=== PATIENT | female | born 1980 | race Caucasian/White ===

== ENCOUNTER 2018-02-27 13:49 | Emergency (ER) | payer SELFPAY ==
[~2018-02-27] VITALS: Ht 167.6 cm; Wt 81.8 kg
[~2018-02-27 13:49] MED LIST: ALDOMET PO; AMLOPIDINE; DHA; FLEXERIL 1010 MG/TAB PO; LORTAB 5/500 501 TAB PO; MEDROL 4MG DOSPA4 MG PO; MOTRIN 600600 MG/TAB PO; NO HOME MEDICATIONS; NORCO 325 MG-51 TAB PO; NORCO 325 MG-7.1 TAB PO; PERCOCET 325 MG1 TA2 PO; PRENATAL VITAMI1 TA5 PO; PRENATAL1 TA1 PO; PROZAC 20MG20 MG PO; TOPROL; ZYRTEC 10MG10 MG PO; ZYRTEC5 MG PO
[2018-02-27 13:58] VITALS: BP 198/108; TEMP 98.4
[2018-02-27] MEDS ORDERED: CELEXA 20MG20 MG/TAB PO (14:40)
[2018-02-27] MEDS ORDERED: NORCO 325 MG-51 TAB PO (15:22)
[2018-02-27 15:33] VITALS: PULSE 70
== END 2018-02-27 15:32 | disposition home or self-care (01) ==
LOC: COL.ER 13:49
DX: S39.012A Strain of muscle, fascia and tendon of lower back, initial encounter (principal); S80.12XA Contusion of left lower leg, initial encounter; F32.9 Major depressive disorder, single episode, unspecified; W22.8XXA Striking against or struck by other objects, initial encounter; W18.39XA Other fall on same level, initial encounter

== ENCOUNTER 2018-05-05 18:46 | Emergency (ER) | payer SELFPAY ==
[~2018-05-05] VITALS: Ht 165.1 cm; Wt 81.8 kg
[~2018-05-05 18:46] MED LIST changes: +CELEXA 20MG20 MG/TAB PO
[2018-05-05 18:51] VITALS: BP 184/114; TEMP 98.8
[2018-05-05] MEDS ORDERED: MOBIC 7.5MG7.5 MG PO (19:50)
[2018-05-05] MEDS ORDERED: FLEXERIL5 MG PO (19:50)
[2018-05-05 20:00] VITALS: PULSE 59
== END 2018-05-05 20:00 | disposition home or self-care (01) ==
LOC: COL.ER 18:46
DX: M62.830 Muscle spasm of back (principal); M54.2 Cervicalgia; G89.29 Other chronic pain; E03.9 Hypothyroidism, unspecified; F32.9 Major depressive disorder, single episode, unspecified; F41.9 Anxiety disorder, unspecified; F17.210 Nicotine dependence, cigarettes, uncomplicated

== ENCOUNTER 2019-04-10 12:43 | Observation (INO) | payer BC ==
[~2019-04-10] VITALS: Ht 165.1 cm; Wt 85.0 kg
[~2019-04-10 12:43] MED LIST changes: +FLEXERIL5 MG PO; +MOBIC 7.5MG7.5 MG PO
[2019-04-10] MEDS ORDERED: SINGULAIR 110 MG/TAB PO (15:50)
[2019-04-10] MEDS ORDERED: XANAX 0.5MG0.5 MG PO (15:51)
[2019-04-10] MEDS ORDERED: SYNTHROID0.112 MG/T PO (15:52)
[2019-04-10] MEDS ORDERED: ALEVE LIQCAPS (15:53)
[2019-04-10] MEDS ORDERED: PERCOCET 325 MG1 TA2 PO (15:54)
[2019-04-10] MEDS ORDERED: ZOFRAN ODT4 MG PO (15:55)
[2019-04-10 17:56] VITALS: BP 126/71; PULSE 54; TEMP 98.9
[2019-04-10 17:59] VITALS: BP 126/71; PULSE 54; TEMP 98.9
[2019-04-10 19:22] VITALS: BP 124/70; PULSE 60; TEMP 97.5
--- NOTE | 2019-04-10 19:25 | NUR ---
Patient arrived to room at 1330. Drove self from home after leaving [facility]. Nurse Gracia who report was received from stated patient was going home to [place] to get clothings and hygene products then would arrive to hospital. Call placed to Dr. Copeland per his request, received orders and were placed. Patient stated her pain was at a 4/10, administered PRN medications as ordered. Is independent in room. States urine is a dark color but clear. Call light and personal items are within reach.
--- NOTE | 2019-04-10 20:30 | NUR ---
PT RESTING IN BED A+OX4. REPORTS NO SOA. ABD PAIN 6/10- PRN PAIN MEDS GIVEN. PT ON CLEAR LIQUID DIET. NPO AT MIDNIGHT. IV FLUSES WELL NO REDNESS, NO SWELLING. PULSES PALAPBLE/ BOWEL SOUNDS AUDIBLE THROUGHOUT. LUNGS CLEAR X4. HEART RRR. REPORTS NO NEEDS AT THTIS TIME. CALL ILT IN REACH
[2019-04-11] VITALS (9 sets, daily range): BP systolic 112–172; BP diastolic 63–105; PULSE 50–103; TEMP 97.3–98.4
--- NOTE | 2019-04-11 02:07 | NUR ---
IV TO THE RIGHT AC WAS PULLED OUT BY ACCIDENT- CATHETER TIP INTACT. PLACED NEW 20 G IV IN THE LEFT HAND, FLUSHED WELL, NO REDNESS, NO SWELLING. IV FLUIDS RUNNING AT 100 ML/HR.
--- NOTE | 2019-04-11 05:25 | NUR ---
PT HAD AN UNEVENTFUL NIGHT. REPORTS PAIN 5-6/10 IN ABD PRN PAIN MEDS GIVEN TILL 0030. NPO AFTER MIDNIGHT. PT SLEPT DURING NIGHT. NEW 20 G IV STARTED TO THE LEFT HAND. NO PAIN NO SWELLING, NO REDNESS. IV FLUIDS RUNNING AT ORDERED RATE. NO SOA. NO NEEDS AT THIS TIME. CALL LIGHT IN REACH
--- NOTE | 2019-04-11 06:26 | NUR ---
PT LEFT UNIT FOR PROCEDURE AT THIS TIME.
--- NOTE | 2019-04-11 06:51 | NUR ---
REPORT GIVEN KARIN SERRANO
--- NOTE | 2019-04-11 07:00 | NUR ---
Recieved report from off going shift. Patient is at radiology receiving scan.
[2019-04-11] MEDS ORDERED: NORCO 325 MG-51 TAB PO (11:03)
[2019-04-11 13:17] LABS: BASO # 0.1 (0.0-0.2); BASO % 0.8 % (0.0-2.0); EOS # 0.3 (0.0-0.7); EOS % 4.1 % (0-4.0); GRAN # 3.8 (1.4-6.5); GRAN % 49.5 % (42.2-75.2); HEMATOCRIT 40.4 % (37.0-47.0); HEMOGLOBIN 13.5 g/dl (12.5-16.0); LYMPH % 39.1 % (20.0-51.0); MEAN CELL VOLUME 94 fl (80.0-100.0); MEAN CORPUSCULAR HEMOGLOBIN 31 pg (27.0-31.0); MEAN CORPUSCULAR HGB CONC 33 g/dl (33.0-37.0); MEAN PLATELET VOLUME 10.8 fl (7.4-10.4); MONO # 0.5 (0.1-0.6); MONO % 6.4 % (1.7-9.3); PLATELET COUNT 321 K/mm3 (130-400); RED BLOOD COUNT 4.31 M/mm3 (4.10-5.30); REDCELL DISTRIBUTION WIDTH-CV 13.2 % (11.5-14.5)
[2019-04-11 13:33] LABS: ALBUMIN 3.5 gm/dL (3.5-5.0); BILIRUBIN,TOTAL 0.4 mg/dL (0.0-1.0); CALCIUM 8.7 mg/dL (8.4-10.2); CREATININE, serum 0.62 (0.52-1.25); POTASSIUM 3.9 mmol/L (3.4-5.0)
--- NOTE | 2019-04-11 14:22 | NUR ---
HEAVENLY met with the patient to discuss a discharge plan. The pt lives in [place] with her two sons. The pt does not use DME and reports independence with ADLs. The pt's PCP is Dr. Benavidez in [place] and pt receives medications from [facility] in [place] with no difficulties. The pt does not have advanced directives in the EMR and was not interested in obtaining a DPOA-HC form. The pt plans to return home and her dad will provide transporation. There are no additional needs at this time.
--- NOTE | 2019-04-11 19:25 | NUR ---
Report given to oncoming shift. Patient is resting in bed awaiting surgery. States she is having some pain. PRN administered.
--- NOTE | 2019-04-11 19:35 | NUR ---
pt left for surgery at this time.
--- NOTE | 2019-04-11 22:24 | NUR ---
IN POST OP
--- NOTE | 2019-04-11 22:28 | NUR ---
PT ARRIVED TO UNIT. VSS. PAIN 5/10 INCREASES WITH MOVEMENT. PAIN MEDS WILL BE GIVEN. WILL CONTINUE TO MONITOR.
--- NOTE | 2019-04-11 22:30 | NUR ---
PT ARRIVED TO UNIT AFTER PROCEDURE. REPORTED 5/1 PAIN AT THIS TIME. PRN PAIN MEDS GIVEN. VSS. LUNGS CLEAR. BOWEL SOUNDS HEARD THROUGHOUT. HEART RRR. LAP SITES ARE DCI X4. IV FLUSHES WELL, IV FLUIDS RUNNNING AT ORDERED RATE. NO NEEDS AT THIS TIME. CALL LIGHT IN REACH
--- NOTE | 2019-04-11 22:52 | NUR ---
Pt c/o incisional pain rated 6/10. No other needs voiced at this time. Assist to BR. Steady gait. Back to bed. Call light within reach.
--- NOTE | 2019-04-11 23:16 | NUR ---
Pt given pudding, nadege crackers and sprite per her request. States she is getting her appetite back. VS monitored.
[2019-04-12 00:47] VITALS: BP 130/81; PULSE 66; TEMP 97.7
--- NOTE | 2019-04-12 02:06 | NUR ---
PT RESTING IN BED A+OX4. VSS. PAIN IS 5/10- PRN PAIN MEDS GIVEN. PT FALLS ASLEEP BETWEEN PAIN MEDS. GAIT STABLE. NO NEEDS AT THIS TIME. CALL LIGHT IN REACH
[2019-04-12 04:09] VITALS: BP 120/63; PULSE 66; TEMP 98.1
[2019-04-12 08:28] VITALS: BP 144/63; PULSE 53; TEMP 97.5
--- NOTE | 2019-04-12 10:40 | NUR ---
Pt is awake and A/Ox4. Dr. Copeland in earlier this morning to discharge pt, awaiting parents to arrive for ride home. Pt reports 6/10 pain to abdomen, requested PRN pain medication prior to leaving, given PRN percocet. IV to right hand was removed, catheter tip intact. All discharge instructions and paperwork was reviewed, pt expressed understanding. New prescription given. Pt to let staff know when parents arrive.
--- NOTE | 2019-04-12 11:07 | NUR ---
Pt was escorted out of facility by staff.
== END 2019-04-12 11:08 | disposition home or self-care (01) ==
LOC: SURG 12:43 → MEDICAL 13:37
PROVIDERS: ADMIT Surgery
DX: K80.10 Calculus of gallbladder with chronic cholecystitis without obstruction (principal); F17.210 Nicotine dependence, cigarettes, uncomplicated; J45.909 Unspecified asthma, uncomplicated; F41.9 Anxiety disorder, unspecified; E03.9 Hypothyroidism, unspecified; Z90.710 Acquired absence of both cervix and uterus; Z79.899 Other long term (current) drug therapy
CPT/HCPCS: A9537; G0378; G0379; J0690; J1100; J1170; J1885; J2175; J2250; J2405; J2550; J2704; J3010; J7042; J7120